=== PATIENT | male | born 1950 | race Caucasian/White ===

== ENCOUNTER 2016-12-25 06:54 | Day surgery (SDC) | payer BC ==
[~2016-12-25] VITALS: Ht 182.9 cm; Wt 100.0 kg
[2016-12-25] MEDS ORDERED: SODIUM CHLORIDE 0.9% 1,000 ML IV ONE (07:36)
[2016-12-25 07:42] VITALS: BP 124/88
[2016-12-25] MEDS ORDERED: PLEASE ENTER HEIGHT AND WEIGHT MC SCH (08:00)
[2016-12-25] MEDS ORDERED: LISI1TAB5 PO (08:09)
[2016-12-25] MEDS ORDERED: ASPI-621 PO (08:09)
[2016-12-25] MEDS ORDERED: ZOLP10TA5 PO (08:10)
[2016-12-25] MEDS ORDERED: NAPR500T PO (08:11)
[2016-12-25] MEDS ORDERED: MV-M1TAB3 PO (08:18)
[2016-12-25] MEDS ORDERED: CHOL100011 PO (08:18)
[2016-12-25 08:43] LABS: BLOOD UREA NITROGEN 17 mg/dL (7-18)
[2016-12-25 08:55] LABS: ASPARTATE AMINO TRANSFERASE 23 U/L (15-37)
[2016-12-25] MEDS ORDERED: TICAGRELOR 90 MG TABLET ONE (09:45)
[2016-12-25] MEDS ORDERED: VERAPAMIL 2.5 MG/ML, 2ML ONE (09:45)
[2016-12-25] MEDS ORDERED: MIDAZOLAM 1 MG/ML, 5ML ONE (09:45)
[2016-12-25] MEDS ORDERED: FENTANYL PF 100 MCG/2ML ONE (09:45)
[2016-12-25] MEDS ORDERED: HEPARIN 1,000 UNITS/ML, 10ML ONE (09:46)
[2016-12-25] MEDS ORDERED: BIVALIRUDIN 250 MG ONE (09:46)
[2016-12-25] MEDS ORDERED: LIDOCAINE 2%, 20ML ONE (09:46)
[2016-12-25] MEDS ORDERED: SODIUM CHLORIDE 0.9% 1,000 ML IV SCH (10:29)
== END 2016-12-25 13:07 | disposition home or self-care (01) ==
LOC: CACL 06:54
PROVIDERS: ATTEND Internal Medicine Cardiovascular Disease
DX: I42.9 Cardiomyopathy, unspecified (principal); I10 Essential (primary) hypertension; E78.00 Pure hypercholesterolemia, unspecified; Z86.19 Personal history of other infectious and parasitic diseases; Z83.3 Family history of diabetes mellitus; Z82.49 Family history of ischemic heart disease and other diseases of the circulatory system; Z82.3 Family history of stroke; Z80.1 Family history of malignant neoplasm of trachea, bronchus and lung; Z79.01 Long term (current) use of anticoagulants
CPT/HCPCS: 36415; 71020; 80053; 85025; 85610; 85730; 93005; 93460; 99156; C1894; J1644; J2250; J3010; J3490; Q9967; J0583